=== PATIENT | male | born 1980 | race Caucasian/White ===

== ENCOUNTER 2019-08-23 07:58 | Emergency (ER) | payer BC, SELFPAY ==
[2019-08-23 08:02] VITALS: BP 135/97; PULSE 79; RESP 18; TEMP 36.7; O2SAT 99
--- NOTE | 2019-08-23 08:09 | ED.HEATRA ---
HPI - Head Injury General Chief complaint: Head Injury Stated complaint: FALL, HEAD INJURY Time Seen by Provider: 08/23/19 08:09 Source: patient Mode of arrival: ambulatory Limitations: no limitations History of Present Illness HPI Narrative: Patient is a 39-year-old male who presents for evaluation of head injury. Patient states that he tripped over 1 of his children's toys, and his head hit the side of the wall, causing an abrasion to his head, no loss of consciousness. No headache pain. No vomiting or vision changes. No neck pain. No prodromal symptoms prior to the fall such as chest pain, palpitations or shortness of breath. Patient denies any current numbness or weakness. States he wanted to be evaluated for possible concussion. Patient is not on any anticoagulation medications. Related Data Allergies Allergy/AdvReac Type Severity Reaction Status Date / Time No Known Allergies Allergy Verified 08/23/19 08:05 Review of Systems Review of Systems: Narrative: CONSTITUTIONAL: Denies fever CARDIOVASCULAR: Denies chest pain RESPIRATORY: Denies cough or dyspnea. GASTROINTESTINAL: Denies abdominal pain SKIN: Denies rash MUSCULOSKELETAL: Denies back pain NEUROLOGIC: Denies headache [facility] Past Medical History Medical History (Updated 08/23/19 @ 08:28 by Alayna Flynn MD) Hypertension Surgical History Surgical History (Updated 08/23/19 @ 08:25 by Alayna Flynn MD) History of hernia surgery Social History Social History (Updated 08/23/19 @ 08:26 by Alayna Flynn MD) Smoking status: Current every day smoker Alcohol intake: never Substance use: never Living arrangements: with family Gender identity (if verbalized by the patient): Male Exam Narrative: Exam Narrative: GENERAL: Awake, alert, conversant HEAD: Normocephalic, abrasion to the forehead. EYES: PERRLA and EOMI. ENT: Nares clear, no rhinorrhea or epistaxis. Mucous membranes moist. NECK: Supple. CHEST: No respiratory distress, breathing even and non labored HEART: Regular rate, sinus rhythm ABDOMEN:Non distended, non tender EXTREMITIES: Normal range of motion. No edema. SKIN: Warm, dry, no rash. NEURO:No focal deficits. Alert and oriented x3. Finger to nose intact bilaterally. EOMs intact without nystagmus. No facial droop/asymmetry noted bilaterally. Grimace intact. Intact sensation in face. Hearing intact bilaterally. Shoulder shrug intact. Strength 5/5 bilateral upper extremities. Strength 5/5 bilateral lower extremities. Reflexes 2+ patellar. Heel to bolivar intact bilaterally. Ambulatory with a narrow based steady gait. No ataxia. Course Vital Signs Vital signs: Vital Signs Temperature 36.7 C 08/23/19 08:02 Pulse Rate 79 08/23/19 08:02 Respiratory Rate 18 08/23/19 08:02 Blood Pressure 135/97 H 08/23/19 08:02 Pulse Oximetry 99 08/23/19 08:02 Temperature 36.7 C 08/23/19 08:02 Pulse Rate 79 08/23/19 08:02 Respiratory Rate 18 08/23/19 08:02 Blood Pressure 135/97 H 08/23/19 08:02 Pulse Oximetry 99 08/23/19 08:02 MDM - Head Injury MDM Narrative Medical decision making narrative: Patient presented for evaluation of head injury. No fall or loss of consciousness. No focal neurological symptoms. Patient is not anticoagulated. At this point, symptoms are most consistent with a mild concussion. The laceration is very superficial, more of an abrasion and does not require any sutures. We discussed wound care. We discussed need for primary care physician follow-up. Patient was then discharged home. Discharge Plan Discharge Clinical Impression: Closed head injury Qualifiers: Encounter type: initial encounter Qualified Code(s): S09.90XA - Unspecified injury of head, initial encounter Concussion Qualifiers: Encounter type: initial encounter Loss of consciousness presence/duration: without LOC Qualified Code(s): S06.0X0A - Concussion without loss of consciousness, initial encounter [facility]
[2019-08-23] MEDS: TETANUS,DIPHTHERIA,AC PERTUSSIS ADULT (0.5 ML) BOOSTRIX IM (08:34)
== END 2019-08-23 08:41 | disposition home or self-care (01) ==
LOC: ANHED 08:34
PROVIDERS: Emergency Provider Emergency Medicine
DX: S06.0X0A Concussion without loss of consciousness, initial encounter (principal); I10 Essential (primary) hypertension; Z23 Encounter for immunization; F17.200 Nicotine dependence, unspecified, uncomplicated; W01.198A Fall on same level from slipping, tripping and stumbling with subsequent striking against other object, initial encounter
CPT/HCPCS: 90471; 90715; 99283

== ENCOUNTER 2021-04-23 08:53 | Emergency (ER) | payer OTHER, SELFPAY ==
--- NOTE | ~2021-04-23 | XR_ITS ---
XR chest 2V DATE: 04/23/2021 09:26 INDICATION: Left-sided chest pain, shortness of breath TECHNIQUE: PA and lateral views COMPARISON: None FINDINGS: There is prominent pleural thickening and calcification along the posterolateral right ches t wall, with mild elevation of the right diaphragm. There is discoid atelectasis and/or scarring scattered in the upper, mid and lower right lung. The le ft lung appears clear. No pleural effusion or pulmonary vascular congestion or pneumothorax is detect ed. Normal heart size. IMPRESSION: Prominent chronic pleural thickening and calcification along the posterolateral right erin st wall Scattered discoid atelectasis and/or scarring in the right lung Reviewed, dictated and finalized at location [facility] [employer] IMPRESSION: Prominent chronic pleural thickening and calcification along the po sterolateral right chest wall Scattered discoid atelectasis and/or scarring in the right lung
[2021-04-23 09:00] VITALS: BP 136/96; PULSE 77; RESP 18; TEMP 36.3; O2SAT 98
--- NOTE | 2021-04-23 09:06 | ECG_ITS ---
Measurements Intervals [place] Rate: 74 P: 36 ID: 151 QRS: 36 QRSD: 104 T: 50 QT: 346 QTc: 385 Interpretive Statements SINUS RHYTHM EARLY PRECORDIAL R/S TRANSITION ST ELEVATION IN DIFFUSE LEADS- PROBABLY EARLY REPOLARIZATION ABNORMALITY BORDERLINE ECG Electronically Signed On 04-23-2021 9:57:54 BILLING ADMINISTRATOR by Johnson Mcqueen D.O.
[2021-04-23 09:15] LABS: Basophils Absolute Auto 0.1 K/mm3 (0.0-0.1); Basophils Percent Auto 0.9 % (0.2-1.2); Eosinophils Absolute Auto 0.5 K/mm3 (0-0.3); Eosinophils Percent Auto 3.9 % (0-4.4); Hematocrit 43.5 % (42.0-52.0); Hemoglobin 15.3 g/dL (14.0-18.0); Immature Granulocyte Absolute 0.04 K/mm3 (0.00-0.031); Immature Granulocyte Percent A 0.3 % (0-0.5); Lymphocytes Absolute Auto 2.43 K/mm3 (0.9-3.2); Lymphocytes Percent Auto 18.8 % (18.3-44.2); Mean Corpuscular HGB Conc 35.2 g/dl (32-36); Mean Corpuscular Hemoglobin 30.1 pg (26-34); Mean Corpuscular Volume 85.5 fl (80-100); Mean Platelet Volume 10.9 fl (7.4-10.4); Monocytes Absolute Auto 1.5 K/mm3 (0.1-0.6); Monocytes Percent Auto 11.5 % (2.6-8.5); Neutrophils Absolute Auto 8.3 K/mm3 (1.3-6.7); Neutrophils Percent Auto 64.6 % (45.5-73.1); Platelet Count Result 311 k/mm3 (150-375); Red Blood Count 5.09 M/mm3 (4.6-6.20); Red Cell Distribution Width 11.7 % (11.5-14.5); White Blood Count 12.9 K/mm3 (4.5-10.0)
[2021-04-23 09:24] LABS: INR 0.9; Prothrombin Time 12.2 Seconds (11.1-14.7)
[2021-04-23 09:25] LABS: Partial Thromboplastin Time 28.5 SECONDS (22.3-36.8)
[2021-04-23 09:26] LABS: Alanine Aminotransferase 23 U/L (4-50); Albumin Level 4.6 g/dL (3.5-5.1); Alkaline Phosphatase 81 U/L (38-126); Anion Gap 7 mmol/L (8-16); Aspartate Amino Transferase 20 U/L (17-59); Bilirubin,Total 0.5 mg/dL (0.2-1.3); Blood Urea Nitrogen 10 mg/dL (9-20); Calcium 9.4 mg/dL (8.4-10.2); Carbon Dioxide 28 mmol/L (22-30); Chloride 103 mmol/L (98-107); Estimated CRCL calculation 121 ml/min; Estimated Glomerular Filt Rate > 60; Glucose 109 mg/dL (65-110); Lipase 95 U/L (23-300); Sodium 138 mmol/L (137-145)
[2021-04-23 09:36] LABS: Troponin I < 0.012 ng/mL (0.000-0.034)
--- NOTE | 2021-04-23 09:41 | ED.CHESTPAIN ---
HPI - Chest Pain General Chief Complaint: Chest Pain Stated Complaint: chest pain Time Seen by Provider: 04/23/21 09:10 Source: patient and RN notes reviewed Mode of arrival: ambulatory Limitations: no limitations History of Present Illness HPI narrative: Patient is a 40-year-old male who presents noting that last night and today he had some episodic chest discomfort worse with deep breathing that was self isolated on arrival to the emergency department he is noting that his symptoms have resolved he is denying any current chest pain or URI symptoms patient has not taken anything for his symptoms notes history of hypertension hyperlipidemia and anxiety patient notes that he has been compliant with his medication. Patient denies similar occurrence in the past Related Data Home Medications Medication Instructions Recorded Confirmed amlodipine 04/23/21 escitalopram oxalate mg 04/23/21 04/23/21 hydrochlorothiazide 04/23/21 simvastatin mg 04/23/21 Allergies Allergy/AdvReac Type Severity Reaction Status Date / Time No Known Allergies Allergy Verified 04/23/21 11:19 Review of Systems Review of Systems: All systems reviewed & are unremarkable except as noted in HPI and below PMFSH Past Medical History Medical History (Updated 04/23/21 @ 12:59 by Everton Hodgson PA-C) Anxiety Hyperlipidemia Hypertension Surgical History Surgical History History of hernia surgery Social History Social History (Updated 04/23/21 @ 12:55 by Everton Hodgson PA-C) Smoking status: Never smoker Alcohol intake: never Substance use: never Gender identity (if verbalized by the patient): Male Exam Narrative: GENERAL: Well-appearing, well-nourished, and in no acute distress. HEAD: Normocephalic, atraumatic. EYES: PERRLA and EOMI. ENT: Nares clear, no rhinorrhea or epistaxis. Mucous membranes moist. CHEST: Clear to auscultation. No respiratory distress. No wheezes rales or rhonchi HEART: Regular rate and rhythm. No murmur heard. Normal peripheral pulses. ABDOMEN: Soft, nontender, nondistended. EXTREMITIES: Normal range of motion. No edema. SKIN: Warm, dry, no rash. NEURO: No focal deficits. Alert and oriented x3. Cranial nerves II through XII grossly intact PSYCH: Normal mood and affect. Course Course Emergency Course: Patient evaluated for chest discomfort no concerning findings in the EKG blood work and imaging. Patient without any high risk changes. Patient has remained chest pain-free during his visit. Patient will follow with primary care for further evaluation agrees with the treatment plan. ABCs and vital signs intact and stable. Patient aware of his findings treatment plan and diagnosis Reevaluation(s) Reevaluation #1: Patient resting comfortably in the room nondistressed aware of case findings treatment plan and diagnosis denies any chest pain Date: 04/23/21 Vital Signs Vital signs: Vital Signs Temperature 97.3 F L 04/23/21 09:00 Pulse Rate 77 04/23/21 09:00 Respiratory Rate 18 04/23/21 09:00 Blood Pressure 136/96 H 04/23/21 09:00 Pulse Oximetry 98 04/23/21 09:00 Temperature 97.3 F L 04/23/21 09:00 Pulse Rate 63 04/23/21 11:46 Respiratory Rate 19 04/23/21 11:46 Blood Pressure 119/87 04/23/21 11:46 Pulse Oximetry 95 04/23/21 11:46 MDM - Chest Pain MDM Narrative Medical decision making narrative: Patients EKGs and labs are without significant high risk changes. Cardiac risk factors were reviewed. Patient is felt likely to be low risk for ACS and reasonable for further risk stratification testing as an outpatient. Pain was not sudden or maximal in onset without tearing or ripping. quality. No other signs or symptoms to suggest aortic dissection. A low-risk Wells criteria is noted. PE is felt to be unlikely. No pneumonia or URI symptoms were seen on evaluation today. Patient is felt to be reasonable for continued eval
[2021-04-23] MEDS: ASPIRIN 81 MG CHEWABLE TABLET 324 MG PO (10:51)
[2021-04-23 11:22] VITALS: O2SAT 100
[2021-04-23 11:24] VITALS: PULSE 65
[2021-04-23 11:31] VITALS: BP 126/94; PULSE 64; RESP 20; O2SAT 96
[2021-04-23 11:46] VITALS: BP 119/87; PULSE 63; RESP 19; O2SAT 95
[2021-04-23 12:27] LABS: Troponin I < 0.012 ng/mL (0.000-0.034)
[2021-04-23 13:07] VITALS: BP 118/86; PULSE 67; RESP 24; O2SAT 97
== END 2021-04-23 13:08 | disposition home or self-care (01) ==
PROVIDERS: Emergency Provider Emergency Medicine; PCP Nurse Practitioner Family
DX: R07.89 Other chest pain (principal); I10 Essential (primary) hypertension; E78.5 Hyperlipidemia, unspecified; F41.9 Anxiety disorder, unspecified; R94.31 Abnormal electrocardiogram [ECG] [EKG]
CPT/HCPCS: 36415; 71046; 80053; 83690; 84484; 85025; 85610; 85730; 93005; 99284; A9270